=== PATIENT | male | born 1985 | race Caucasian/White ===

== ENCOUNTER 2019-12-28 03:32 | Emergency (ER) | payer OTHER, SELFPAY ==
[2019-12-28 03:39] VITALS: BP 114/76; PULSE 64; RESP 16; TEMP 36.7; O2SAT 98
[2019-12-28] MEDS: FLUORESCEIN SOD 1 MG/STRIP (03:53)
[2019-12-28] MEDS: TETRACAINE HCL 0.5% OPHTH SOLN 4 ML BTL 1 DROP (03:53)
--- NOTE | 2019-12-28 04:08 | ED.EYEPROB ---
HPI - Eye Problem General Chief complaint: Eye Problems Stated complaint: eye issues Time Seen by Provider: 12/28/19 03:39 Source: patient Mode of arrival: ambulatory Limitations: no limitations History of Present Illness HPI Narrative: This patient is a 34 year old male who presents for evaluation of left eye pain. Patient states he woke up 1-2 hours ago when pain to left eye. His pain is worse with light. He also reports blurred vision to left eye but he denies visual field defects. He denies eye injury or feeling like something got into his eye today. He denies history of glasses or contact use. chief complaint: eye pain Related Data Allergies Allergy/AdvReac Type Severity Reaction Status Date / Time azithromycin Allergy Unknown Verified 04/08/16 05:42 Review of Systems Review of Systems: All systems reviewed & are unremarkable except as noted in HPI and below Constitutional: Constitutional: Denies chills Eyes: Eyes: Denies blind spots, Reports change in vision, Denies diplopia, Denies eye discharge, Denies floaters, Denies requires corrective lenses, Denies seeing flashes and Reports photophobia PMFSH Past Medical History Medical History (Updated 12/28/19 @ 04:48 by Janae Cooper MD) Patient denies medical problems Surgical History Surgical History (Updated 12/28/19 @ 04:44 by Janae Cooper MD) No pertinent past surgical history Social History Social History (Updated 12/28/19 @ 04:44 by Janae Cooper MD) Smoking status: Never smoker Exam Const: General: alert Orientation/consciousness: patient oriented x3 HENMT: Face and sinus: face symmetric Eyes: Conjunctivae: conjunctival abnormality left conjunctival injection Cornea: fluorescein used (uptake to lower cornea) Pupils: Equal, round and reactive pupils present EOM: EOMs intact bilaterally Direct Ophthalmoscopy: normal light reflex, fundi normal bilaterally and anterior chamber normal Other: visual acuity- Bilateral- 20/30 Right - 20/40 Left 20/30 Resp: Effort & Inspection: normal respiratory effort Skin: General skin exam: normal color Rashes: no rashes Course Reevaluation(s) Reevaluation #1: I Discussed with patient no detachment seen on fundoscopic exam. He did have uptake to cornea to suggest abrasion. His pain and symptoms resolved after tetracaine. He will follow up with eye doctor in 24 hours if symptoms do not improve. Date: 12/28/19 Time: 04:46 Vital Signs Vital signs: Vital Signs Temperature 98.0 F 12/28/19 03:39 Pulse Rate 64 12/28/19 03:39 Respiratory Rate 16 12/28/19 03:39 Blood Pressure 114/76 12/28/19 03:39 Pulse Oximetry 98 12/28/19 03:39 Temperature 98.1 F 12/28/19 05:14 Pulse Rate 64 12/28/19 05:14 Respiratory Rate 16 12/28/19 05:14 Blood Pressure 128/73 12/28/19 05:14 Pulse Oximetry 100 12/28/19 05:14 Discharge Plan Discharge Clinical Impression: Abrasion of cornea, left Qualifiers: Encounter type: initial encounter Qualified Code(s): S05.02XA - Injury of conjunctiva and corneal abrasion without foreign body, left eye, initial encounter Patient Disposition: Home, Self-Care Condition: Stable Instructions: Antibiotic Form, Corneal Abrasion (ED), Eye Pain (ED) Additional Instructions: Please follow up with eye doctors if your symptoms do not improve within 24 hours. Prescriptions: New ciprofloxacin HCl 0.3 % drops See Rx Instructions .ROUTE .COMPLEX Qty: 5 RF: 0 Follow-up/Referrals: Gregory,Walter Juan MD [Primary Care Provider] - Discharge Date/Time: 12/28/19 05:14
[2019-12-28 05:14] VITALS: BP 128/73; PULSE 64; RESP 16; TEMP 36.7; O2SAT 100
== END 2019-12-28 05:14 | disposition home or self-care (01) ==
PROVIDERS: Emergency Provider General Practice; PCP Internal Medicine
DX: S05.02XA Injury of conjunctiva and corneal abrasion without foreign body, left eye, initial encounter (principal); X58.XXXA Exposure to other specified factors, initial encounter
CPT/HCPCS: 99283

== ENCOUNTER 2020-02-23 21:58 | Emergency (ER) | payer OTHER, SELFPAY ==
[2020-02-23 22:27] VITALS: BP 120/80; PULSE 85; RESP 14; TEMP 36.6; O2SAT 98
--- NOTE | 2020-02-24 00:41 | ED.EYEPROB ---
HPI - Eye Problem General Chief complaint: Eye Problems Stated complaint: eye pain Time Seen by Provider: 02/24/20 00:40 History of Present Illness HPI Narrative: Gradual onset of bilateral eye pain and burry vision earlier today. Associated with photophobia. Onset followed going into his attic. He is not aware of any injury or getting anything into his eyes. He had a similar experience earlier this year after ging into the attic. At that time he was diagnosed with a corneal abrasion. He does not wear contact lenses. Related Data Allergies Allergy/AdvReac Type Severity Reaction Status Date / Time azithromycin Allergy Unknown Verified 04/08/16 05:42 Review of Systems Review of Systems: All systems reviewed & are unremarkable except as noted in HPI and below Constitutional: Constitutional: Denies fever(s) Eyes: Eyes: Reports change in vision and Reports photophobia ENT: Denies dizziness and Denies nasal congestion PMFSH Past Medical History Medical History Patient denies medical problems Surgical History Surgical History No pertinent past surgical history Social History Social History Smoking status: Never smoker Exam Const: General: no acute distress and alert Orientation/consciousness: patient oriented x3 HENMT: Head: normal to inspection Eyes: Alignment and Position: alignment normal and position normal Periorbital: periorbital findings abnormal bilateral periorbital swelling (minimal); no tenderness and no erythema Conjunctivae: conjunctival abnormality bilateral conjunctival injection Cornea: corneas normal Pupils: Equal, round and reactive pupils present EOM: EOMs intact bilaterally Direct Ophthalmoscopy: photophobia Resp: Effort & Inspection: normal respiratory effort Auscultation: clear to auscultation bilaterally Cardio: Rate: regular rate Rhythm: regular rhythm Skin: General skin exam: normal color Neuro: General: patient oriented x3, moves all extremities and CN's II-XI intact bilaterally Speech: normal speech Extrem: General: normal to inspection Psych: Appearance: grossly normal and well kempt Mental Status: mental status grossly normal Affect: normal affect Attitude: cooperative Course Vital Signs Vital signs: Vital Signs Temperature 36.6 C 02/23/20 22:27 Pulse Rate 85 02/23/20 22:27 Respiratory Rate 14 02/23/20 22:27 Blood Pressure 120/80 02/23/20 22:27 Pulse Oximetry 98 02/23/20 22:27 Temperature 36.6 C 02/23/20 22:27 Pulse Rate 65 02/24/20 03:02 Respiratory Rate 17 02/24/20 03:02 Blood Pressure 124/84 02/24/20 03:02 Pulse Oximetry 98 02/24/20 03:02 MDM - Eye Problem MDM Narrative Medical decision making narrative: IOP: R21 L22 Aside from mildly elevated IOP, conjunctival injection and photophobia eye exam was grossly normal. Given the multiple instances both associated with going into the attic it is most likely chemical or allergic conjunctivitis. Will cover with antibiotics incase there is an infectious component. Discharge Plan Discharge Clinical Impression: Conjunctivitis Patient Disposition: Home, Self-Care Condition: Stable Instructions: Antibiotic Form Prescriptions: New ciprofloxacin HCl 0.3 % ointment 1 applic EACH EYE TID 5 Days Qty: 3.5 RF: 0 No Action ciprofloxacin HCl 0.3 % drops See Rx Instructions .ROUTE .COMPLEX Qty: 5 RF: 0 Follow-up/Referrals: Gregory,Walter Juan MD [Primary Care Provider] - Discharge Date/Time: 02/24/20 03:04
[2020-02-24] MEDS: KETOROLAC 0.5% OP SOLN 5 ML BOTTLE 1 DROP EACH EYE (02:47)
[2020-02-24] MEDS: CIPROFLOXACIN HCL 0.3% OP SOLN 2.5 ML BTL 2 DROP EACH EYE (02:47)
[2020-02-24 03:02] VITALS: BP 124/84; PULSE 65; RESP 17; O2SAT 98
== END 2020-02-24 03:04 | disposition home or self-care (01) ==
PROVIDERS: Emergency Provider Emergency Medicine; PCP Internal Medicine
DX: H10.9 Unspecified conjunctivitis (principal)
CPT/HCPCS: 99283; A9270